=== PATIENT | male | born 1955 | race Caucasian/White ===

== ENCOUNTER → 2020-09-05 10:01 | Outpatient (BNVA) | payer OTHER, SELFPAY | PROVIDERS: Family Provider Nurse Practitioner; PCP Nurse Practitioner; Visit Provider Urology | DX: N40.1 Benign prostatic hyperplasia with lower urinary tract symptoms (principal); N13.8 Other obstructive and reflux uropathy | CPT/HCPCS: 81003 ==

== ENCOUNTER 2022-05-18 05:54 | Day surgery (SDC) | payer OTHER, SELFPAY ==
[2022-05-14 10:24] VITALS: BMI 43.5
[2022-05-18 06:17] VITALS: BP 153/100; PULSE 77; RESP 18; TEMP 36.4; O2SAT 97
[2022-05-18] MEDS: sodium chloride 0.9% 1,000 ML 30 ML IV (06:27)
--- NOTE | 2022-05-18 07:38 | P.HP_ITS ---
Same Day Surgery H&P Indication for Procedure/HPI DATE OF PROCEDURE: May 18, 2022 CHIEF COMPLAINT/INDICATIONFOR SURGICAL PROCEDURE: Screening PREOP DIAGNOSIS: Change in PLANNED PROCEDURE: Operation Date: 05/18/22 07:00 Proposed Procedures p Colonoscopy 48628(Not Applicable) - Jamari Marie MD Medications/Allergies* Home Medications Medication Instructions Recorded Confirmed Type tamsulosin 0.4 mg capsule 0.4 mg PO BID 05/03/20 05/18/22 History lisinopril 10 mg tablet 10 mg PO DAILY 09/05/20 05/18/22 History aspirin 81 mg tablet,delayed 81 mg PO DAILY 03/27/22 05/18/22 History release cholecalciferol (vitamin D3) 25 25 mcg PO DAILY 03/27/22 05/18/22 History mcg (1,000 unit) capsule Allergies/Adverse Reactions Allergy/AdvReac Type Severity Reaction Status Date / Time No Known Allergies Allergy Unverified 05/18/22 06:11 Current Medications: Generic Name Dose Route Start Last Admin Trade Name Freq PRN Reason Stop Dose Admin Sodium Chloride 1,000 mls @ 30 mls/hr 05/18/22 06:00 05/18/22 06:27 Sodium Chloride 0.9% IV 30 mls/hr .Q24H ALBERT Administration Pertinent History/Comorbid Conditions* Medical History (Updated 04/21/22 @ 15:48 by Jamari Marie MD) BPH with obstruction/lower urinary tract symptoms Ganglion HTN (hypertension) Surgical History (Updated 09/05/20 @ 14:42 by Kal Good MD) Hx of umbilical hernia repair Family History (Updated 05/03/20 @ 12:25 by PRISCILA Lozano) Father, IN HIS 40'S STOMACH CANCER Mother, AT AGE 93 COLON,SKIN,AND BREAST CANCER Cancer Mother Father Social History Smoking and tobacco status: never smoked Alcohol intake: current Alcohol intake frequency: holidays/special occasions only Marital status: Single Current occupational status: employed Pertinent Exam Findings alert, oriented x 3, clear to auscultation bilaterally, regular rate & rhythm, operative site marked and procedure specific exam findings Recommendations Surgery/Procedure today Coding Level of Care Code Acute Technician'S Helper for Rachel Dixon
--- NOTE | 2022-05-18 08:11 | ANES.PREANE2 ---
Pre-Anesthetic Assessment Height/Weight: Height 1.68 m Weight 122.47 kg Temp Pulse Resp BP Pulse Ox O2 Del Method 97.5 F L 77 18 153/100 97 05/18/22 06:17 05/18/22 06:17 05/18/22 06:17 05/18/22 06:17 05/18/22 06:17 05/18/22 06:17 Preop Diagnosis: Change in Operation Date: 05/18/22 07:00 Proposed Procedures p Colonoscopy [id number](Not Applicable) - Jamari Marie MD Familial anesthetic complications: None Was Beta Caleb taken within 24 hours: N/A Was Clonidine taken within 24 hours: N/A Last intake: Intake Last Liquid Date 05/17/22 Last Liquid Time 23:00 Last Solid Date 05/16/22 Last Solid Time 12:00 Social No alcohol and No tobacco Exam alert, oriented x 3, clear to auscultation bilaterally and regular rate & rhythm Airway Submandibular: within normal limits Cervical ROM: within normal limits Mallampati: Class III Dentition: chipped Comments: Comments: broken front tooth History/ROS No significant history except as noted Pulmonary None reported CV/HEM None reported None reported Hepatic None reported GI Gastroesophageal Reflux Disease change in Metabolic None reported Musc/skel None reported Neuropsych None reported Anesthetic Plan ASA status: 2 Anesthesia: Anesthesia Evaluation Risk of > 500 ml blood loss (7ml/kg in children): No Medications/Allergies Home Medications Medication Instructions Recorded Confirmed Last Taken Type tamsulosin 0.4 mg capsule 0.4 mg PO BID 05/03/20 05/18/22 05/17/22 History lisinopril 10 mg tablet 10 mg PO DAILY 09/05/20 05/18/22 05/17/22 History aspirin 81 mg tablet,delayed 81 mg PO DAILY 03/27/22 05/18/22 05/16/22 History release cholecalciferol (vitamin D3) 25 25 mcg PO DAILY 03/27/22 05/18/22 05/15/22 History mcg (1,000 unit) capsule Allergies Allergy/AdvReac Type Severity Reaction Status Date / Time No Known Allergies Allergy Unverified 05/18/22 06:11 Current Medications Generic Name Dose Route Start Last Admin Trade Name Freq PRN Reason Stop Dose Admin Sodium Chloride 1,000 mls @ 30 mls/hr 05/18/22 06:00 05/18/22 06:27 Sodium Chloride 0.9% IV 30 mls/hr .Q24H ALBERT Administration PFSH Anesthesia Medical History BPH with obstruction/lower urinary tract symptoms Ganglion HTN (hypertension) Surgical History Hx of umbilical hernia repair Family History Mother , AT AGE 93 COLON,SKIN,AND BREAST CANCER Cancer Father , IN HIS 40'S STOMACH CANCER Cancer Social History Smoking and tobacco status: never smoked Alcohol intake: current Alcohol intake frequency: holidays/special occasions only Marital status: Single Current occupational status: employed Data Anesthesia Cardiac Studies: No Data to Display
[2022-05-18 08:30] VITALS: BP 104/61; PULSE 65; RESP 16; TEMP 36.6; O2SAT 95
[2022-05-18 08:46] VITALS: BP 115/70; PULSE 63; RESP 18; O2SAT 95
[2022-05-18 08:57] VITALS: BP 123/80; PULSE 67; RESP 18; O2SAT 97
--- NOTE | 2022-05-18 13:15 | ANE.PACU2 ---
Inpatient post-anesthesia follow up: Airway intact: Yes Vital signs: Temperature 98 F Pulse Rate 67 Respiratory Rate 18 Blood Pressure 123/80 Pulse Oximetry 97 Oxygen Delivery Me thod Room Air Oxygen Flow Rate 3 Fraction of Inspir ed Oxygen Hydration adequate: Yes Nausea and vomiting: No Pain level: 1 Mental status: Baseline
== END 2022-05-18 09:04 | disposition home or self-care (01) ==
PROVIDERS: PCP Nurse Practitioner; Visit Provider Internal Medicine
PROC: 0DJD8ZZ Inspection of Lower Intestinal Tract, Via Natural or Artificial Opening Endoscopic (ICD-10-PCS; CPT 45378; principal; 2022-05-18 07:00)
DX: Z12.11 Encounter for screening for malignant neoplasm of colon (principal); K57.30 Diverticulosis of large intestine without perforation or abscess without bleeding; I10 Essential (primary) hypertension; Z79.82 Long term (current) use of aspirin
CPT/HCPCS: 45378; J2704; J7030

== ENCOUNTER 2023-03-31 08:04 | Outpatient (CLI) | payer OTHER, SELFPAY ==
[2023-03-31 08:47] VITALS: BMI 43.5
--- NOTE | 2023-03-31 08:48 | ECG_ITS ---
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 Interpretive Statements NAME OF STUDY: LEXISCAN SESTAMIBI STRESS TEST INDICATION: Chest Pain PROCEDURE: At the baseline, the blood pressure was 150/96 mm Hg with a heart rate of 61 bpm and oxygen saturation of 96%. The electrocardiogram showed sinus rhythm, normal axis with normal ST and T's. The Lexiscan was infused over a period of 20 seconds. A total of 0.4 milligrams of Lexiscan was infused. The stress phase was continued for a total of 5 minutes. Heart rate at the end of the stress phase was 76 bpm, oxygen saturation of 96% with a blood pressure of 163/103 mm Hg. The EKG at the peak infusion revealed no significant ST-T wave changes. Sestamibi was injected 20 seconds after the Lexiscan infusion. Blood pressure at the end of the recovery phase was 143/101 mm Hg, oxygen saturation of 96% with a heart rate of 70 beats per minute. CONCLUSION: 1. Normal EKG response to LexiScan infusion. 2. No LexiScan induced chest pain or cardiac arrhythmia. 3. Normal blood pressure and heart rate response. 4. Sestamibi/sestamibi perfusion scan pending; see separate report. Electronically Signed On 04-14-2023 5:14:36 CDT by Ninoska Duval M.D. [email or web address]
--- NOTE | 2023-03-31 08:49 | NMCV_ITS ---
NM benitez perf SPECT r/s* [id number] Cm Armas Age: 67 Gender: M : 1955 Exam Date: 03/31/2023 09:07 Ordering Phys: Veronica Cheatham Technologist: PAU Gage Exam Location: [facility] Indications: CHEST PAIN STRESS TEST [facility] IMAGE PROTOCOL Rest/Stress 1 Lexiscan Day Radiopharmaceutical Dose (mCi) Administration Site Administered by Rest: Tc-99m 10.9 IV PAU Sanchez Sestamibi Stress:Tc-99m 32.5 IV PAU Sanchez Sestamibi Rest: 31-Mar-2023 60 Discovery 630 Stress: 31-Mar-2023 30 Discovery 630 0.4mg Lexiscan. Supine position only as patient was unable to lay prone. SPECT RESULTS Technical Quality: Excellent Raw Data Analysis: Normal Image Corrections: No attenuation or motion correction applied Summed Stress Score: 0 Summed Rest Score: 0 Summed Difference Score: 0 PERFUSION FINDINGS Uniform myocardial tracer uptake with no significant perfusion abnormalities. FUNCTIONAL RESULTS (calculated via Gated SPECT) Stress Image LV EF (%): 69 Stress EDV (mL):101 TID: 0.89 Stress ESV (mL):31 FUNCTIONAL FINDINGS: Segmental wall motion analysis revealing no gross wall motion abnormalities IMPRESSIONS 1. Uniform myocardial tracer uptake with no significant perfusion abnormalities. 2. Normal LV ejection fraction of 69%. 3. LV wall motion analysis revealing no gross wall motion abnormalities. 4. Normal LV volume Low probability for coronary ischemia, based on the above findings No similar previous studies are available for comparison Dr Fredy Ballesteros MD [facility] (Electronically Signed) Final Date: 31 March 2023 13:49 S
[2023-03-31] MEDS: regadenoson 0.4 Mg/5 ml Syringe IVP (09:43)
[2023-03-31 09:57] VITALS: BP 143/101; PULSE 74
== END 2023-03-31 08:05 | disposition home or self-care (01) ==
LOC: CDL 08:05
PROVIDERS: PCP Nurse Practitioner; Visit Provider Nurse Practitioner
DX: R07.9 Chest pain, unspecified (principal)
CPT/HCPCS: 36415; 78452; 93017; 96374; A9500; J2785